=== PATIENT | female | born 1990 | race Caucasian/White ===

== ENCOUNTER 2021-07-15 05:49 | Inpatient (IN) | payer OTHER ==
[2021-07-15] MEDS: LACTATED RINGERS 1,000 ML IV SCH ×2 (07:15→07:55)
[2021-07-15] MEDS ORDERED: CARBOPROST TROMETHAMINE 250 MCG/ML 1 ML AMP IM PRN (07:16)
[2021-07-15] MEDS ORDERED: METHYLERGONOVINE 0.2 MG/ML 1 ML AMP IM PRN (07:16)
[2021-07-15] MEDS ORDERED: LIDOCAINE 0.5% (PF) 5 MG/ML (50 ML SDV) SQ PRN (07:16)
[2021-07-15] MEDS ORDERED: TERBUTALINE 1 MG/ML VIAL SQ PRN (07:16)
[2021-07-15] MEDS ORDERED: OXYTOCIN 10 UNIT/ML 1 ML VIAL IM PRN (07:16)
[2021-07-15 07:46] LABS: Basophils % (A) 0 %; Eosinophils % (A) 0 %; HCT 39.4 % (34.0-46.0); HGB 13.4 gm/dL (11.4-16.0); Lymphocytes # (A) 1.7 k/uL (1.0-4.8); Lymphocytes % (A) 17 %; MCH 30.7 pg (25.0-35.0); MCHC 33.9 g/dL (31.0-37.0); MCV 90.6 fL (80.0-100.0); Mean Platelet Volume 7.1; Monocytes # (A) 0.8 k/uL (0-1.0); Monocytes % (A) 8 %; Neutrophils # (A) 7.1 k/uL (1.3-7.7); Neutrophils % (A) 70 %; Platelet Count 289 k/uL (150-450); RBC 4.34 m/uL (3.80-5.40); RDW 13.3 % (11.5-15.5); WBC 10.1 k/uL (3.8-10.6)
[2021-07-15] MEDS: OXYTOCIN 30 UNITS/500 ML NS 30 UNIT in SALINE 1 500ML.BAG IV SCH ×2 (08:00→09:00)
--- NOTE | 2021-07-15 08:28 | P.HPOB ---
History of Present Illness H&P Date: 07/15/21 Chief Complaint: Labor at 39-5/7 This is a 31-year-old 3 para 2002 woman who was admitted at 39-5/7 weeks gestation in spontaneous active labor. She reports onset of contractions at approximately 3 AM that have been progressively worsening. She denied leakage of fluid or vaginal bleeding. Upon evaluation in labor and delivery triage she was found to be in active labor and 45 cm dilated. She is therefore admitted. has been complicated by maternal covert infection at 20 weeks. This was mild. She has been monitored with testing weekly and growth ultrasound also which have been reassuring. Obstetric history: Term 2013, term 2017,, located by retained placenta. Laboratory data: Blood type O+, antibody screen negative, rubella immune, VDRL nonreactive, hep Lien surface antigen negative, HIV negative, gonorrhea and clinic cultures negative, group B strep negative, glucose tolerance testing was declined. Review of Systems Constitutional: Reports as per HPI Past Medical History History of Any Multi-Drug Resistant Organisms: None Reported Smoking Status: Never smoker Medications and Allergies Home Medications Medication Instructions Recorded Confirmed Type Pnv,Calcium 72/Iron/Folic Acid 1 tablet PO DAILY 07/15/21 07/15/21 History [ Plus Tablet] Allergies Allergy/AdvReac Type Severity Reaction Status Date / Time morphine AdvReac Dyspnea Verified 07/15/21 05:52 Exam Intake and Output 07/14/21 07/15/21 07/15/21 22:59 06:59 14:59 Other: Weight 74.389 kg Upon my initial evaluation the patient is 7 cm dilated and is actively laboring and very uncomfortable. Contractions every one to 2 minutes, heart tones category 2 with baseline in the 95-105 range. Artificial rupture of membranes is undertaken and thick particulate meconium-stained fluid is noted. Results Result Diagrams: 07/15/21 06:18 Assessment and Plan (1) Spontaneous onset of labor Current Visit: Yes Status: Acute Code(s): FOT3996 - SNOMED Code(s): 93510953 (2) Meconium in amniotic fluid Current Visit: Yes Status: Acute Code(s): P96.83 - MECONIUM STAINING SNOMED Code(s): 7777479 Plan: 31-year-old 3 para 2 at 39-5/7 weeks gestation admitted in active labor. Thick meconium-stained on amniotic fluid with current category 2 heart tones. She is making rapid progress. Anticipate spontaneous vaginal delivery. DIGESTION OPERATOR has been on notified as has the nursery regarding heart tones and meconium.
[2021-07-15] MEDS ORDERED: IBUPROFEN 600 MG TAB PO PRN (08:31)
[2021-07-15] MEDS ORDERED: diphenhydrAMINE 50 MG/ML 1 ML VIAL IVP PRN ×2 (08:31)
[2021-07-15] MEDS ORDERED: LANOLIN CREAM 5 GM TUBE TOPICAL PRN (08:31)
[2021-07-15] MEDS ORDERED: HYDROCORTISONE 2.5% RECTAL CREAM 30 GM TUBE RECTAL PRN (08:31)
[2021-07-15] MEDS ORDERED: ZOLPIDEM 5 MG TAB PO PRN (08:31)
[2021-07-15] MEDS ORDERED: BENZOCAINE/MENTHOL SPRAY 1 GM/SPRAY AEROSOL TOPICAL PRN (08:31)
[2021-07-15] MEDS ORDERED: diphenhydrAMINE 25 MG CAP PO PRN (08:31)
[2021-07-15] MEDS ORDERED: ACETAMINOPHEN TAB 325 MG TAB PO PRN (08:31)
[2021-07-15] MEDS ORDERED: diphenhydrAMINE 50 MG CAP PO PRN (08:31)
[2021-07-15] MEDS ORDERED: SIMETHICONE 80 MG CHEWABLE PO PRN (08:31)
--- NOTE | 2021-07-15 08:31 | P.PROBDLV ---
Vaginal Delivery Note - . Vaginal Delivery Note: Findings: Female in the direct occiput anterior position with Apgars of 5 at 1 minute and 9 at 5 minutes and 9 at 10 minutes. Weight pending. First- degree perineal laceration. Thick meconium-stained fluid. Intact, three-vessel cord placenta with meconium staining noted. Nuchal cord 1. True knot in the umbilical cord noted. Delivery summary: This is a 31-year-old 3 para 2002 woman who presented in spontaneous active labor at 39-5/7 weeks gestation. Following admission she progressed to approximately 6 cm dilated. She did have a prolonged heart rate deceleration 5 minutes to approximately 90 beats per second. This did then resolved however she maintained a lower heart rate baseline between 95 and 105. Artificial rupture of membranes was undertaken and very thick meconium- stained fluid was noted. She is 7 cm dilated at this time. There was positive heart rate acceleration with scalp stem when the electrode was placed. She then progressed very rapidly over the next 10 minutes to complete cervical dilation with strong urge to push. She did initially push in the hands and knees position with good descent of the vertex. With progression she was switched to the modified [place]a position and the bed was broken down. With additional maternal effort the head did deliver from the direct occiput anterior position. The shoulders were internally rotated to allow for delivery of the anterior shoulder which was the right shoulder. A nuchal cord 1 was reduced. The rest the was then delivered onto the field. The cord was clamped and cut and the was immediately taken to the warmer where the MUSEUM REGISTRAR was therefore assessment. Apgars were 5 at 1 minute 9 at 5 minutes and 9 at 10 minutes. Perineum was inspected and a first-degree laceration was noted. This was infused with lidocaine and repaired with 3-0 Vicryl suture. An intact, three-vessel cord placenta was expressed after an approximately 8 minute third stage of labor. It was noted to be meconium-stained. The vagina and cervix are reinspected and no lacerations were noted. She did have good uterine tone however is some brisk vaginal bleeding. Bimanual examination and evacuated clot from the cervix and lower uterine segment. She then received Methergine 1 with good resolution of bleeding. EBL was approximately 400 mL's. The infant was taken to the special care nursery. Events of delivery and findings with the nuchal cord and true knot in the cord reviewed with the parents and all questions were answered. All counts were correct.
[2021-07-15] MEDS ORDERED: SENNOSIDES-DOCUSATE SODIUM 1 EACH TAB PO SCH (20:00)
[2021-07-16 07:33] LABS: Basophils % (A) 0 %; Eosinophils # (A) 0.1 k/uL (0-0.7); Eosinophils % (A) 1 %; HCT 25.7 % (34.0-46.0); Lymphocytes # (A) 1.7 k/uL (1.0-4.8); Lymphocytes % (A) 21 %; MCH 31.2 pg (25.0-35.0); MCHC 33.7 g/dL (31.0-37.0); MCV 92.6 fL (80.0-100.0); Mean Platelet Volume 7.4; Monocytes # (A) 0.4 k/uL (0-1.0); Monocytes % (A) 5 %; Neutrophils # (A) 5.4 k/uL (1.3-7.7); Neutrophils % (A) 69 %; Platelet Count 252 k/uL (150-450); RBC 2.77 m/uL (3.80-5.40); RDW 13.5 % (11.5-15.5); WBC 7.9 k/uL (3.8-10.6)
[2021-07-16 07:44] LABS: HGB 8.7 gm/dL (11.4-16.0)
--- NOTE | 2021-07-16 09:39 | P.DS ---
Providers Date of admission: 07/15/21 07:01 Expected date of discharge: 07/16/21 Attending physician: Cherelle Tripp Primary care physician: Stated None - Discharge Diagnosis(es) (1) Spontaneous onset of labor Current Visit: Yes Status: Acute (2) Meconium in amniotic fluid Current Visit: Yes Status: Acute (3) Normal spontaneous vaginal delivery Current Visit: Yes Status: Acute (4) Nuchal cord Current Visit: Yes Status: Acute (5) True knot in umbilical cord Current Visit: Yes Status: Acute (6) Perineal laceration with delivery, first degree Current Visit: Yes Status: Acute Hospital Course: This is a 31-year-old 3 now para 3 woman who is admitted at 39-5/7 weeks gestation in spontaneous active labor. Following admission on she initially had category 1 heart tones. With progression of labor she did have some heart rate decelerations however her labor progressed very rapidly. She did undergo artificial rupture of membranes at which time thick meconium-stained fluid was noted. She had rapid progression through the remainder of the active phase of labor and commenced pushing with excellent maternal effort. She ultimately delivered a liveborn female over a first-degree perineal laceration with Apgars of 5 at 1 minute and 9 at 5 minutes and 9 at 10 minutes. WELDER OXYHYDROGEN was present for delivery secondary to the thick meconium-stained fluid. Findings at the time of this delivery were also significant for a nuchal cord 1 as well as a true knot in the umbilical cord. She did receive Pitocin and Methergine following the third stage of labor for mild uterine atony which then resolved. The initially was admitted to the special care nursery however was ultimately discharged back to the room later in the day. Her course was otherwise unremarkable. By the morning of day #1 she was ambulating and voiding without difficulty. She reported significant decrease in her lochia. Her postdelivery hemoglobin was 8.7 her vital signs were stable. She is breast-feeding successfully. She was therefore discharged home with routine instructions for care and follow-up. Patient Condition at Discharge: Good Plan - Discharge Summary New Discharge Prescriptions: No Action Pnv,Calcium 72/Iron/Folic Acid [ Plus Tablet] 1 tablet PO DAILY Discharge Medication List Pnv,Calcium 72/Iron/Folic Acid [ Plus Tablet] 1 tablet PO DAILY 07/15/21 [History] Follow up Appointment(s)/Referral(s): Cherelle Tripp MD [STAFF PHYSICIAN] - 6 Weeks Activity/Diet/Wound Care/Special Instructions: Follow-up in the office in 6 weeks . Call with any concerning signs or symptoms including heavy vaginal bleeding, severe abdominal pain, fever greater than 100.5, swelling or redness of the lower extremities, foul vaginal discharge, or signs of depression. Nothing in the vagina for 6 weeks after delivery, specifically no intercourse. May use [id number] Tylenol and/or ibuprofen as needed for pain. Discharge Disposition: HOME SELF-CARE
[2021-07-16 10:29] VITALS: BP 120/61; PULSE 92; RESP 17; TEMP 98.2
== END 2021-07-16 14:47 | disposition home or self-care (01) | DRG 807 ==
LOC: FBPOP 05:49 → 4FBP 07:01
PROVIDERS: ADMIT Obstetrics & Gynecology Obstetrics; ATTEND Obstetrics & Gynecology
PROC: 10E0XZZ Delivery of Products of Conception, External Approach (ICD-10-PCS; principal; 2021-07-15)
PROC: 0HQ9XZZ Repair Perineum Skin, External Approach (ICD-10-PCS; 2021-07-15)
PROC: 10907ZC Drainage of Amniotic Fluid, Therapeutic from Products of Conception, Via Natural or Artificial Opening (ICD-10-PCS; 2021-07-15)
PROC: 4A0HXCZ Measurement of Products of Conception, Cardiac Rate, External Approach (ICD-10-PCS; 2021-07-15)
DX: O76 Abnormality in fetal heart rate and rhythm complicating labor and delivery (principal); Z37.0 Single live birth; O69.2XX0 Labor and delivery complicated by other cord entanglement, with compression, not applicable or unspecified; O69.81X0 Labor and delivery complicated by cord around neck, without compression, not applicable or unspecified; O70.0 First degree perineal laceration during delivery; O77.0 Labor and delivery complicated by meconium in amniotic fluid; Z3A.39 39 weeks gestation of pregnancy; Z88.8 Allergy status to other drugs, medicaments and biological substances; Z88.5 Allergy status to narcotic agent; Z86.16 Personal history of COVID-19
CPT/HCPCS: 59025; 85025; 86850; 86900; 86901; 88307; 99213